=== PATIENT | female | born 1950 | race Hispanic/Latino ===

== ENCOUNTER 2018-10-17 11:57 | Emergency (ER) | payer MEDICARE ==
[2018-10-17] MEDS ORDERED: ACETAMINOPHEN-CODEINE 300/30MG TAB ONE (12:44)
== END 2018-10-17 13:07 | disposition home or self-care (01) ==
LOC: EDH 11:57
DX: G89.29 Other chronic pain (principal); M19.90 Unspecified osteoarthritis, unspecified site; Z79.899 Other long term (current) drug therapy; Z90.49 Acquired absence of other specified parts of digestive tract; Z98.890 Other specified postprocedural states